=== PATIENT | male | born 1980 | race Hispanic/Latino ===

== ENCOUNTER 2017-03-20 20:11 | Emergency (ER) | payer SELFPAY ==
[2017-03-20 21:02] VITALS: BP 102/60
--- NOTE | 2017-03-20 22:33 | XRay Report ---
FINAL REPORT EXAM: XR HAND 2V LT HISTORY: LEFT HAND PAIN TECHNIQUE: AP and lateral views of the left hand PRIORS: None. FINDINGS: There is no evidence for acute fracture or dislocation. No soft tissue swelling or radiopaque foreign bodies are seen. Bony mineralization is normal and joint spaces are maintained. IMPRESSION: No acute bony or soft tissue abnormality noted.
== END 2017-03-20 21:03 | disposition left against medical advice (07) ==
LOC: ED 20:11
DX: M79.642 Pain in left hand (principal); Z53.21 Procedure and treatment not carried out due to patient leaving prior to being seen by health care provider